=== PATIENT | female | born 2000 | race Caucasian/White ===

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

== ENCOUNTER 2018-06-24 07:57 | Day surgery (SDC) | payer OTHER ==
[2018-06-24 08:24] LABS: CONTROL LINE UCG INT CTR LINE PRESENT; URINE PREG TEST NEGATIVE (NEGATIVE)
[2018-06-24 08:47] LABS: PLATELET COUNT, AUTOMATED 222 10^3/uL (150-450)
[2018-06-24 09:08] LABS: COLLAGEN EPINEPHRINE 139 SECONDS (74-162)
[2018-06-24] MEDS: LR 1,000 ML IV ×2 (10:00→13:05)
[2018-06-24] MEDS: NS IV ×2 (11:30→12:10)
[2018-06-24] MEDS: DESMOPRESSIN ACETATE IV (11:30)
[2018-06-24] MEDS: AMINOCAPROIC ACID IV (12:10)
[2018-06-24] MEDS: BUPIVACAINE HCL 0.5% 10 ML VIAL As Ordered (12:17)
[2018-06-24] MEDS ORDERED: fentaNYL 100 MCG/2 ML INJECTION (J3010) As Ordered (12:28)
[2018-06-24] MEDS ORDERED: LIDOCAINE 2% INJ 100 MG/5 ML SDV (FOR ANES.) As Ordered (12:28)
[2018-06-24] MEDS ORDERED: PROPOFOL 200 MG/20 ML VIAL As Ordered (12:28)
[2018-06-24] MEDS ORDERED: dexameTHASONE 4 MG/ML 1ML VIAL (J1100) As Ordered ×2 (12:28)
[2018-06-24] MEDS ORDERED: ONDANSETRON 4MG/2ML VIAL (J2405) As Ordered (12:28)
[2018-06-24] MEDS ORDERED: ROCURONIUM BROMIDE 50 MG/5 ML VIAL As Ordered (12:28)
[2018-06-24] MEDS ORDERED: MIDAZOLAM INJ 2 MG/2 ML VIAL (J2250) As Ordered (12:28)
[2018-06-24] MEDS ORDERED: SUCCINYLCHOLINE 100 MG/5 ML SYRINGE (J0330) As Ordered (12:31)
[2018-06-24] MEDS ORDERED: MEPERIDINE INJ 25 MG/ML VIAL (J2175) As Ordered (13:13)
[2018-06-24] MEDS: MEPERIDINE INJ 25 MG/ML VIAL (J2175) IV ×2 (13:13→13:20)
[2018-06-24] MEDS ORDERED: fentaNYL 100 MCG/2 ML INJECTION (J3010) IV (13:15)
[2018-06-24] MEDS ORDERED: ONDANSETRON 4MG/2ML VIAL (J2405) IV (13:15)
[2018-06-24] MEDS: PERCOCET 5MG/325MG TAB PO ×2 (13:30→14:12)
[2018-06-24] MEDS: LIDOCAINE 1% MDV 20ML VIAL SQ (17:00)
[2018-06-24] MEDS ORDERED: SLF 3 ML SYR IV (18:00)
[2018-06-24] MEDS ORDERED: AMINOCAPROIC ACID IV (18:00)
[2018-06-24] MEDS ORDERED: NS IV (18:00)
[2018-06-24] MEDS: AMINOCAPROIC ACID 500 MG TAB PO (19:08)
[2018-06-24] MEDS: HYDROcodone/APAP LIQUID 7.5-325MG 15ML UDC (LORTAB ELIXIR) PO (19:09)
[2018-06-24] MEDS: SLF 3 ML SYR IV (21:08)
[2018-06-25] MEDS: AMINOCAPROIC ACID 500 MG TAB PO ×2 (01:43→07:50)
[2018-06-25] MEDS: HYDROcodone/APAP LIQUID 7.5-325MG 15ML UDC (LORTAB ELIXIR) PO ×3 (04:57→11:09)
[2018-06-25] MEDS: SLF 3 ML SYR IV (06:00)
== END 2018-06-25 11:46 | disposition home or self-care (01) ==
LOC: M SDC 06-25 11:46 → M PED 17:00
DX: J35.01 Chronic tonsillitis (principal); D68.0 Von Willebrand disease; G43.909 Migraine, unspecified, not intractable, without status migrainosus; Z88.0 Allergy status to penicillin; Z14.01 Asymptomatic hemophilia A carrier
CPT/HCPCS: 42826

== ENCOUNTER 2018-06-29 08:59 | Inpatient (IN) | payer OTHER ==
[2018-06-29] MEDS ORDERED: AMINOCAPROIC ACID 5000 MG/20 ML IV (10:15)
[2018-06-29 10:36] LABS: HEMATOCRIT 40.4 % (36.0-47.0); HEMOGLOBIN 13.5 g/dl (12.0-15.5); MEAN CORPUSCULAR HEMOGLOBIN 29.7 pg (27.0-33.0); MEAN CORPUSCULAR HGB CONC 33.4 g/dl (32.0-36.5); MEAN CORPUSCULAR VOLUME 88.8 fl (80.0-96.0); PLATELET COUNT, AUTOMATED 275 10^3/uL (150-450); RED BLOOD COUNT 4.55 10^6/uL (4.00-5.40); WHITE BLOOD COUNT 6.1 10^3/uL (4.0-10.0)
[2018-06-29] MEDS: NS 1,000 ML IV (10:45)
[2018-06-29] MEDS: DESMOPRESSIN ACETATE IV (10:47)
[2018-06-29] MEDS: NS IV ×2 (10:47→11:12)
[2018-06-29] MEDS: AMINOCAPROIC ACID IV (11:12)
[2018-06-29 11:45] LABS: INR 0.99; PARTIAL THROMBOPLASTIN TIME 32.2 SECONDS (25.4-37.6); PROTHROMBIN TIME 13.2 SECONDS (12.1-14.4)
[2018-06-29] MEDS ORDERED: GLYCOPYRROLATE INJ 0.2 MG/ML 2 ML VIAL As Ordered (12:16)
[2018-06-29] MEDS ORDERED: NEOSTIGMINE 10 MG/10 ML VIAL (J2710) As Ordered (12:16)
[2018-06-29] MEDS ORDERED: ONDANSETRON 4MG/2ML VIAL (J2405) As Ordered (12:17)
[2018-06-29] MEDS ORDERED: SUCCINYLCHOLINE 100 MG/5 ML SYRINGE (J0330) As Ordered (12:17)
[2018-06-29] MEDS ORDERED: LIDOCAINE 2% INJ 100 MG/5 ML SDV (FOR ANES.) As Ordered (12:17)
[2018-06-29] MEDS ORDERED: fentaNYL 100 MCG/2 ML INJECTION (J3010) As Ordered ×2 (12:17→12:30)
[2018-06-29] MEDS ORDERED: dexameTHASONE 4 MG/ML 1ML VIAL (J1100) As Ordered (12:17)
[2018-06-29] MEDS ORDERED: PROPOFOL 200 MG/20 ML VIAL As Ordered (12:17)
[2018-06-29] MEDS ORDERED: ROCURONIUM BROMIDE 50 MG/5 ML VIAL As Ordered (12:17)
[2018-06-29] MEDS ORDERED: MIDAZOLAM INJ 2 MG/2 ML VIAL (J2250) As Ordered (12:17)
[2018-06-29] MEDS ORDERED: ONDANSETRON 4MG/2ML VIAL (J2405) IV (13:00)
[2018-06-29] MEDS: LR 1,000 ML IV (13:00)
[2018-06-29] MEDS ORDERED: HYDROcodone/APAP LIQUID 7.5-325MG 15ML UDC (LORTAB ELIXIR) As Ordered (13:19)
[2018-06-29] MEDS: fentaNYL 100 MCG/2 ML INJECTION (J3010) IV (13:30)
[2018-06-29] MEDS: HYDROcodone/APAP LIQUID 7.5-325MG 15ML UDC (LORTAB ELIXIR) PO (13:35)
[2018-06-29] MEDS: D5W/0.45% SODIUM CHLORIDE 1,000 ML IV (16:17)
[2018-06-29] MEDS: AMINOCAPROIC ACID 500 MG TAB PO ×8 (16:18→23:13)
[2018-06-29] MEDS: MORPHINE 4 MG/ML 1ML VIAL/SYRINGE (J2270) IV (22:54)
[2018-06-30 02:18] LABS: ANION GAP 6 MEQ/L (8-16); BLOOD UREA NITROGEN 10 MG/DL (7-18); CALCIUM LEVEL 8.6 MG/DL (8.5-10.1); CARBON DIOXIDE LEVEL 25 MEQ/L (21-32); CHLORIDE LEVEL 104 MEQ/L (98-107); CREATININE FOR GFR 0.54 MG/DL (0.55-1.30); GLUCOSE, FASTING 114 MG/DL (70-100); POTASSIUM SERUM 4.4 MEQ/L (3.5-5.1); SODIUM LEVEL 135 MEQ/L (136-145); TROPONIN I < 0.02 NG/ML (< 0.10)
[2018-06-30 02:23] LABS: THYROID STIMULATING HORMONE 0.332 uIU/ML (0.463-3.98)
[2018-06-30] MEDS: D5W/0.45% SODIUM CHLORIDE 1,000 ML IV ×2 (02:36→16:59)
[2018-06-30] MEDS ORDERED: ISOVUE-370 76% 100ML VIAL (Q9967) As Ordered (06:45)
[2018-06-30] MEDS: LIDOCAINE VISCOUS 2% SOLN 15ML UDC MT (07:57)
[2018-06-30 09:19] LABS: BASO % 0.1 % (0.0-1.0); EOS % 0.3 % (0.0-3.0); HEMATOCRIT 31.8 % (36.0-47.0); IMMATURE GRANULOCYTE % 0.5 % (0-3.0); LYMPH # 2.9 10^3/uL (1.5-6.5); LYMPH % 26.4 % (24.0-44.0); MEAN CORPUSCULAR HEMOGLOBIN 29.8 pg (27.0-33.0); MEAN CORPUSCULAR VOLUME 87.6 fl (80.0-96.0); MONO # 0.9 10^3/uL (0.0-0.8); MONO % 7.9 % (0.0-5.0); NEUTROPHILS % 64.8 % (36.0-66.0); PLATELET COUNT, AUTOMATED 224 10^3/uL (150-450); RED BLOOD COUNT 3.63 10^6/uL (4.00-5.40); RED CELL DISTRIBUTION WIDTH 12.7 % (11.5-14.5); WHITE BLOOD COUNT 10.8 10^3/uL (4.0-10.0)
[2018-06-30 09:29] LABS: HEMOGLOBIN 10.8 g/dl (12.0-15.5)
[2018-06-30 09:49] LABS: ALBUMIN 2.8 GM/DL (3.2-5.2); ALBUMIN/GLOBULIN RATIO 0.93 (1.00-1.93); ALKALINE PHOSPHATASE 62 U/L (45-117); ALT/SGPT 16 U/L (12-78); ANION GAP 5 MEQ/L (8-16); AST/SGOT 10 U/L (7-37); BILIRUBIN,TOTAL 0.4 MG/DL (0.2-1.0); BLOOD UREA NITROGEN 10 MG/DL (7-18); CALCIUM LEVEL 8.2 MG/DL (8.5-10.1); CARBON DIOXIDE LEVEL 25 MEQ/L (21-32); CHLORIDE LEVEL 104 MEQ/L (98-107); CREATININE FOR GFR 0.49 MG/DL (0.55-1.30); GLUCOSE, FASTING 87 MG/DL (70-100); MAGNESIUM LEVEL 1.7 MG/DL (1.4-2.0); POTASSIUM SERUM 3.7 MEQ/L (3.5-5.1); SODIUM LEVEL 134 MEQ/L (136-145); TOTAL PROTEIN 5.8 GM/DL (6.4-8.2); TROPONIN I < 0.02 NG/ML (< 0.10)
[2018-06-30 09:53] LABS: FREE T4 0.96 NG/DL (0.78-1.33)
[2018-06-30] MEDS ORDERED: SENOKOT S TAB PO (11:15)
[2018-06-30] MEDS: HYDROcodone/APAP LIQUID 7.5-325MG 15ML UDC (LORTAB ELIXIR) PO ×2 (11:56→20:58)
[2018-06-30] MEDS: SENOKOT S TAB PO ×2 (11:57→20:57)
[2018-06-30 12:22] LABS: HEMATOCRIT 30.8 % (36.0-47.0); HEMOGLOBIN 10.5 g/dl (12.0-15.5)
[2018-06-30] MEDS: MAG SULF 1GM/100ML (MAG RUN) 1 GM in APPROPRIATE DILUENT 1 EA IV (13:06)
[2018-06-30 18:03] LABS: HEMATOCRIT 34.9 % (36.0-47.0); HEMOGLOBIN 11.7 g/dl (12.0-15.5)
[2018-07-01 00:38] LABS: HEMATOCRIT 33.1 % (36.0-47.0); HEMOGLOBIN 11.1 g/dl (12.0-15.5)
[2018-07-01] MEDS: D5W/0.45% SODIUM CHLORIDE 1,000 ML IV (06:07)
[2018-07-01] MEDS: HYDROcodone/APAP LIQUID 7.5-325MG 15ML UDC (LORTAB ELIXIR) PO ×2 (06:07→13:30)
[2018-07-01] MEDS: SENOKOT S TAB PO (08:29)
[2018-07-01 08:43] LABS: HEMATOCRIT 34.1 % (36.0-47.0); HEMOGLOBIN 11.5 g/dl (12.0-15.5); MEAN CORPUSCULAR HEMOGLOBIN 30.3 pg (27.0-33.0); MEAN CORPUSCULAR HGB CONC 33.7 g/dl (32.0-36.5); MEAN CORPUSCULAR VOLUME 89.7 fl (80.0-96.0); PLATELET COUNT, AUTOMATED 241 10^3/uL (150-450); RED CELL DISTRIBUTION WIDTH 13.1 % (11.5-14.5); WHITE BLOOD COUNT 6.6 10^3/uL (4.0-10.0)
== END 2018-07-01 13:47 | disposition home or self-care (01) | DRG 908 ==
LOC: M SDC 06-30 16:25 → M MSPAV 06-30 16:26 → M ED 08:59 → M SDC 11:10 → M MSPAV 14:10
PROC: 0W338ZZ Control Bleeding in Oral Cavity and Throat, Via Natural or Artificial Opening Endoscopic (ICD-10-PCS; principal; 2018-06-29 11:29)
DX: K91.840 Postprocedural hemorrhage of a digestive system organ or structure following a digestive system procedure (principal); E87.1 Hypo-osmolality and hyponatremia; D68.0 Von Willebrand disease; R07.81 Pleurodynia; K59.00 Constipation, unspecified; D64.9 Anemia, unspecified; R00.2 Palpitations; E07.89 Other specified disorders of thyroid; T45.625A Adverse effect of hemostatic drug, initial encounter; R51 Headache; Z14.01 Asymptomatic hemophilia A carrier

== ENCOUNTER → 2018-10-16 | Outpatient (REF) | payer OTHER ==
[~2018-10-16] MED LIST: HYDR1SOL PO; HYDROCODONE-ACETAMN; IBUP80TA PO; MAPA160S5 PO; [UNRECOGNIZED DRUG - CODE]; [UNRECOGNIZED DRUG - CODE] PO
[2018-10-16 21:04] LABS: CHLAMYDIA DNA AMPLIFICATION NEGATIVE (NEGATIVE); GC DNA AMPLIFICATION NEGATIVE (NEGATIVE)
== END ==
LOC: M LAB REF 16:13
PROVIDERS: ATTEND Physician Assistant
DX: R30.0 Dysuria (principal)

== ENCOUNTER 2021-03-13 21:28 | Emergency (ER) | payer OTHER ==
[~2021-03-13] VITALS: Ht 170.2 cm; Wt 78.4 kg
[2021-03-13 22:16] LABS: AMORPHOUS SEDIMENT MODERATE (NEGATIVE); APPEARANCE, URINE CLOUDY (CLEAR); BACTERIA, URINE AUTO NEGATIVE (NEGATIVE); BILIRUBIN, URINE AUTO NEGATIVE (NEGATIVE); BLOOD, URINE BLOOD 3+ (NEGATIVE); COLOR, URINE YELLOW (YELLOW); GLUCOSE, URINE (UA) AUTO NEGATIVE (NEGATIVE); KETONE, URINE AUTO NEGATIVE (NEGATIVE); LEUKOCYTE ESTERASE, URINE AUTO 1+ (NEGATIVE); NITRITE, URINE AUTO NEGATIVE (NEGATIVE); PROTEIN, URINE AUTO NEGATIVE (NEGATIVE); RBC, URINE AUTO 2 /HPF (0-3); SPECIFIC GRAVITY URINE AUTO 1.012 (1.002-1.035); SQUAMOUS EPITHELIAL CELL UR AU 1 /HPF (0-6); UROBILINOGEN, URINE AUTO 0.2 mg/dL (0.0-2.0); WBC, URINE AUTO 2 /HPF (0-3)
[2021-03-13 22:19] LABS: BASO # 0.1 10^3/uL (0.0-0.2); BASO % 0.5 % (0.0-1.0); EOS # 0.1 10^3/uL (0.0-0.5); EOS % 0.9 % (0.0-3.0); HEMATOCRIT 40.3 % (36.0-47.0); HEMOGLOBIN 13.3 g/dl (12.0-15.5); LYMPH # 3.7 10^3/uL (1.5-5.0); LYMPH % 31.3 % (24.0-44.0); MEAN CORPUSCULAR VOLUME 93.9 fl (80.0-96.0); MONO # 1.1 10^3/uL (0.0-0.8); NEUTROPHILS # 6.8 10^3/uL (1.5-8.5); NEUTROPHILS % 57.5 % (36.0-66.0); PLATELET COUNT, AUTOMATED 259 10^3/uL (150-450); RED BLOOD COUNT 4.29 10^6/uL (4.00-5.40); WHITE BLOOD COUNT 11.8 10^3/uL (4.0-10.0)
[2021-03-13 23:35] LABS: BLOOD UREA NITROGEN 7 MG/DL (7-18); CALCIUM LEVEL 8.8 MG/DL (8.5-10.1); CARBON DIOXIDE LEVEL 25 MEQ/L (21-32); CHLORIDE LEVEL 110 MEQ/L (98-107); CREATININE FOR GFR 0.56 MG/DL (0.55-1.30); GLOMERULAR FILTRATION RATE > 60.0 (>60); GLUCOSE, FASTING 93 MG/DL (70-100); HCG, SERUM QUANTITATIVE 31417 MIU/ML; POTASSIUM SERUM 4.3 MEQ/L (3.5-5.1); SODIUM LEVEL 140 MEQ/L (136-145)
[2021-03-13] MEDS ORDERED: ACETAMINOPHEN 500 MG TAB PO ONE (23:45)
--- NOTE | 2021-03-14 01:25 | REPVR ---
PROCEDURE INFORMATION: Exam: US Duplex Artery and Vein of the Abdominal and/or Reproductive Organs. Complete Ovaries Exam date and time: 03/13/2021 11:54 PM Age: 20 years old Clinical indication: Lmp or gestational age (in weeks): 6 weeks 3 days; Other: Vag spotting, cramping; complicated by abdominal or pelvic pain; Other: Left pelvic; ; Additional info: Vag bleeding, pelvic cramping, 6wks TECHNIQUE: Imaging protocol: Real-time duplex ultrasound scan of the arterial and venous flow with color Doppler flow and spectral waveform analysis with image documentation. Complete duplex exam focused on the ovaries. Duplex exam was added to evaluate for torsion and other vascular conditions. COMPARISON: No relevant prior studies available. FINDINGS: Right adnexa: The arterial and venous color Doppler flow and spectral waveforms within the right ovary are within normal limits, without evidence for right ovarian torsion. Left adnexa: The arterial and venous color Doppler flow and spectral waveforms within the left ovary are within normal limits, without evidence for left ovarian torsion. IMPRESSION: No evidence for ovarian torsion. PROCEDURE INFORMATION: Exam: US First Trimester, Transabdominal and US , Transvaginal Exam date and time: 03/13/2021 11:54 PM Age: 20 years old Clinical indication: Lmp or gestational age (in weeks): 6 weeks 3 days; Other: Vag spotting, cramping; complicated by abdominal or pelvic pain; Other: Left pelvic; ; Additional info: Vag bleeding, pelvic cramping, 6wks TECHNIQUE: Imaging protocol: Real-time transabdominal obstetrical ultrasound of the maternal pelvis and a first trimester , less than 14 weeks 0 days, with image documentation. Transvaginal imaging was used for better evaluation of the fetus, adnexa, and/or cervix. COMPARISON: No relevant prior studies available. FINDINGS: Last menstrual period: 01/28/2021 Gestation: There is a single live intrauterine gestation with a 3 mm in diameter yolk sac. Embryonic/ heart rate: 104 bpm Placenta: There is a 10 mm x 6 mm x 8 mm small subchorionic hemorrhage surrounding less than 20% of the circumference of the gestational sac. Amniotic fluid: Amniotic fluid is normal for gestational age. BIOMETRY: Gestational age (AUA): 6 weeks 1 day Gestational age (LMP): 6 weeks 3 days Estimated due date (AUA): 11/06/2021 Estimated due date (LMP): 11/04/2021 [place] length: 3.8 mm MATERNAL: Uterus: The uterus is retroverted and measures 8.3 cm x 4.6 cm x 5.7 cm. No myometrial mass is noted. Cervix: There are nabothian cysts in the cervix measuring up to 5 mm. Right adnexa: The right ovary is normal in appearance. No right ovarian cyst or right adnexal mass is noted. The right ovary measures 3.5 cm x 1.8 cm x 1.8 cm. Left adnexa: There is a 2.6 cm x 2.3 cm x 2.3 cm corpus luteal cyst in the left ovary. The left ovary measures 4.7 cm x 2.5 cm x 3 cm. Intraperitoneal space: There is a small amount of free fluid in the pelvis. IMPRESSION: 1. Single live intrauterine with a gestational age by today's ultrasound of 6 weeks 1 day and estimated due date on 11/06/2021. A second trimester obstetrical ultrasound is suggested at 19-20 weeks gestation for a detailed anatomical survey. 2. 10 mm x 6 mm x 8 mm small subchorionic hemorrhage surrounding less than 20% of the circumference of the gestational sac. 3. 2.6 cm x 2.3 cm x 2.3 cm corpus luteal cyst in the left ovary and a small amount of free fluid in the pelvis. Electronically signed by: Placido Jones On 03/14/2021 01:25:11 AM
[2021-03-14 01:38] VITALS: BP 120/70
== END 2021-03-14 01:51 | disposition home or self-care (01) ==
LOC: M ED 21:28
DX: O20.8 Other hemorrhage in early pregnancy (principal); O99.891 Other specified diseases and conditions complicating pregnancy; N83.12 Corpus luteum cyst of left ovary; Z3A.01 Less than 8 weeks gestation of pregnancy; Z88.0 Allergy status to penicillin

== ENCOUNTER → 2023-04-21 | Outpatient (REF) | payer OTHER | LOC: M LAB REF 18:25 | PROVIDERS: ATTEND Internal Medicine | DX: J02.9 Acute pharyngitis, unspecified (principal) ==

== ENCOUNTER 2024-11-04 14:15 | Emergency (ER) | payer BC ==
[~2024-11-04] VITALS: Ht 170.2 cm; Wt 78.2 kg
[~2024-11-04 14:15] MED LIST changes: +FLUO-290; +[UNRECOGNIZED DRUG - CODE] NS
[2024-11-04 14:19] VITALS: TEMP 98.2
[2024-11-04 15:54] LABS: BASO % 0.3 % (0.0-1.0); EOS # 0.1 10^3/uL (0.0-0.5); EOS % 0.4 % (0.0-3.0); HEMATOCRIT 41.2 % (36.0-47.0); HEMOGLOBIN 13.9 g/dl (12.0-15.5); LYMPH # 2.7 10^3/uL (1.5-5.0); LYMPH % 23.6 % (24.0-44.0); MEAN CORPUSCULAR HEMOGLOBIN 30.5 pg (27.0-33.0); MEAN CORPUSCULAR HGB CONC 33.7 g/dl (32.0-36.5); MEAN CORPUSCULAR VOLUME 90.5 fl (80.0-96.0); MONO # 0.6 10^3/uL (0.0-0.8); MONO % 5.4 % (2.0-8.0); NEUTROPHILS # 7.9 10^3/uL (1.5-8.5); NEUTROPHILS % 69.8 % (36.0-66.0); PLATELET COUNT, AUTOMATED 237 10^3/uL (150-450); RED BLOOD COUNT 4.55 10^6/uL (4.00-5.40); WHITE BLOOD COUNT 11.3 10^3/uL (4.0-10.0)
[2024-11-04 16:14] LABS: BLOOD UREA NITROGEN 10 MG/DL (9-23); CALCIUM LEVEL 9.6 MG/DL (8.5-10.1); CARBON DIOXIDE LEVEL 26 MMOL/L (20-31); CHLORIDE LEVEL 106 MMOL/L (98-107); CREATININE FOR GFR 0.58 MG/DL (0.55-1.30); GLOMERULAR FILTRATION RATE > 60.0 (>60); GLUCOSE, FASTING 105 MG/DL (60-100); SODIUM LEVEL 139 MMOL/L (136-145)
[2024-11-04 18:48] VITALS: BP 129/87; O2SAT 96
== END 2024-11-04 18:50 | disposition home or self-care (01) ==
LOC: M ED 14:15
DX: O20.8 Other hemorrhage in early pregnancy (principal); O99.119 Other diseases of the blood and blood-forming organs and certain disorders involving the immune mechanism complicating pregnancy, unspecified trimester; D68.00 Von Willebrand disease, unspecified; Z3A.01 Less than 8 weeks gestation of pregnancy; Z79.899 Other long term (current) drug therapy; Z88.0 Allergy status to penicillin

== ENCOUNTER → 2024-11-10 | Outpatient (REF) | payer BC | LOC: M WUC 19:51 → M LAB REF 19:51 | PROVIDERS: ATTEND Physician Assistant | DX: N39.0 Urinary tract infection, site not specified (principal) ==

== ENCOUNTER → 2024-11-24 | Outpatient (CLI) | payer BC | LOC: M WHC 14:47 | PROVIDERS: ATTEND Nurse Practitioner Family | DX: O35.9XX0 Maternal care for (suspected) fetal abnormality and damage, unspecified, not applicable or unspecified (principal); Z3A.10 10 weeks gestation of pregnancy ==

== ENCOUNTER → 2024-11-24 | Outpatient (CLI) | payer BC ==
[2024-11-24 15:43] LABS: HEMOGLOBIN 13.5 g/dl (12.0-15.5); MEAN CORPUSCULAR HEMOGLOBIN 31.4 pg (27.0-33.0); MEAN CORPUSCULAR HGB CONC 33.8 g/dl (32.0-36.5); PLATELET COUNT, AUTOMATED 229 10^3/uL (150-450); WHITE BLOOD COUNT 10.1 10^3/uL (4.0-10.0)
[2024-11-24 16:46] LABS: HIV 1&2 SCREEN NEGATIVE (NEGATIVE)
[2024-11-24 16:53] LABS: HEPATITIS C VIRUS ABY INDEX 0.02 INDEX (<0.8)
[2024-11-24 16:57] LABS: Trichomonas vaginalis (AMP) NOT DETECTED (NEGATIVE)
[2024-11-24 17:20] LABS: GC DNA AMPLIFICATION NEGATIVE (NEGATIVE)
== END ==
LOC: M PLALAB 12:44
PROVIDERS: ATTEND Nurse Practitioner Family
DX: Z34.81 Encounter for supervision of other normal pregnancy, first trimester (principal); Z3A.00 Weeks of gestation of pregnancy not specified

== ENCOUNTER → 2024-12-23 | Outpatient (CLI) | payer BC | LOC: M PLALAB 12:50 | PROVIDERS: ATTEND Nurse Practitioner Family | DX: Z34.81 Encounter for supervision of other normal pregnancy, first trimester (principal) ==

== ENCOUNTER → 2025-02-04 | Outpatient (CLI) | payer BC | LOC: M WHC 14:19 | PROVIDERS: ATTEND Nurse Practitioner Family | DX: Z34.82 Encounter for supervision of other normal pregnancy, second trimester (principal) ==

== ENCOUNTER 2025-05-17 11:15 | Outpatient (CLI) | payer BC ==
[~2025-05-17] VITALS: Ht 170.2 cm; Wt 83.8 kg
[2025-05-17 11:31] VITALS: BP 123/89
[2025-05-17 11:35] VITALS: O2SAT 97
[2025-05-17] MEDS ORDERED: GNP250TA9 PO (11:36)
[2025-05-17] MEDS ORDERED: PRENTAB9 PO (11:36)
[2025-05-17 13:19] VITALS: BP 116/75
[2025-05-17 14:08] LABS: APPEARANCE, URINE HAZY (CLEAR); BACTERIA, URINE AUTO 1+ (NEGATIVE); BILIRUBIN, URINE AUTO NEGATIVE (NEGATIVE); BLOOD, URINE BLOOD NEGATIVE (NEGATIVE); GLUCOSE, URINE (UA) AUTO 1+ mg/dL (NEGATIVE); KETONE, URINE AUTO NEGATIVE (NEGATIVE); LEUKOCYTE ESTERASE, URINE AUTO 1+ (NEGATIVE); MUCUS, URINE SMALL (NEGATIVE); NITRITE, URINE AUTO NEGATIVE (NEGATIVE); PROTEIN, URINE AUTO 1+ mg/dL (NEGATIVE); RBC, URINE AUTO 1 /HPF (0-3); SPECIFIC GRAVITY URINE AUTO 1.017 (1.002-1.035); SQUAMOUS EPITHELIAL CELL UR AU 9 /HPF (0-6); UROBILINOGEN, URINE AUTO 0.2 mg/dL (0.0-2.0); WBC, URINE AUTO 2 /HPF (0-3)
[2025-05-17] MEDS: BETAMETHASONE SOLUSPAN 6 MG/ML 5 ML VIAL IM SCH (15:02)
[2025-05-17 15:16] VITALS: BP 124/77
[2025-05-17] MEDS ORDERED: HOME MED LIST COMPLETE! XX SCH (16:05)
[2025-05-17 16:39] VITALS: BP 106/61
[2025-05-17 18:25] VITALS: BP 114/71
== END 2025-05-17 18:40 | disposition home or self-care (01) ==
LOC: M LDO 11:15
PROVIDERS: ATTEND Advanced Practice Midwife
DX: O47.03 False labor before 37 completed weeks of gestation, third trimester (principal); O99.113 Other diseases of the blood and blood-forming organs and certain disorders involving the immune mechanism complicating pregnancy, third trimester; O99.343 Other mental disorders complicating pregnancy, third trimester; O99.283 Endocrine, nutritional and metabolic diseases complicating pregnancy, third trimester; O09.293 Supervision of pregnancy with other poor reproductive or obstetric history, third trimester; D68.00 Von Willebrand disease, unspecified; F41.8 Other specified anxiety disorders; E28.2 Polycystic ovarian syndrome; Z88.0 Allergy status to penicillin; Z88.1 Allergy status to other antibiotic agents; Z3A.34 34 weeks gestation of pregnancy
CPT/HCPCS: 59025; 81001; 87081; 87086; 96372; G0463; J0702

== ENCOUNTER 2025-05-18 14:59 | Outpatient (CLI) | payer BC ==
[~2025-05-18] VITALS: Ht 170.2 cm; Wt 83.7 kg
[~2025-05-18 14:59] MED LIST changes: +GNP250TA9 PO; +PRENTAB9 PO
[2025-05-18 15:14] VITALS: BP 126/82
[2025-05-18] MEDS: BETAMETHASONE SOLUSPAN 6 MG/ML 5 ML VIAL IM ONE (15:28)
== END 2025-05-18 15:00 | disposition home or self-care (01) ==
LOC: M LDO 14:59
PROVIDERS: ATTEND Specialist
DX: O60.03 Preterm labor without delivery, third trimester (principal); O99.113 Other diseases of the blood and blood-forming organs and certain disorders involving the immune mechanism complicating pregnancy, third trimester; O99.343 Other mental disorders complicating pregnancy, third trimester; O99.283 Endocrine, nutritional and metabolic diseases complicating pregnancy, third trimester; O09.293 Supervision of pregnancy with other poor reproductive or obstetric history, third trimester; D68.00 Von Willebrand disease, unspecified; F41.8 Other specified anxiety disorders; E28.2 Polycystic ovarian syndrome; Z3A.35 35 weeks gestation of pregnancy
CPT/HCPCS: 59025; 96372; G0463; J0702

== ENCOUNTER 2025-05-25 16:30 | Outpatient (CLI) | payer BC ==
[~2025-05-25] VITALS: Ht 170.2 cm; Wt 83.6 kg
[2025-05-25] MEDS ORDERED: FLUO40CA PO (16:48)
[2025-05-25 16:50] VITALS: BP 114/66
[2025-05-25] MEDS ORDERED: HOME MED LIST COMPLETE! XX SCH (16:50)
[2025-05-25 18:29] VITALS: BP 113/73
[2025-05-25 20:53] VITALS: BP 139/76
== END 2025-05-25 20:56 | disposition home or self-care (01) ==
LOC: M LDO 16:30
PROVIDERS: ATTEND Obstetrics & Gynecology
DX: O09.293 Supervision of pregnancy with other poor reproductive or obstetric history, third trimester (principal); O99.113 Other diseases of the blood and blood-forming organs and certain disorders involving the immune mechanism complicating pregnancy, third trimester; O99.343 Other mental disorders complicating pregnancy, third trimester; O26.893 Other specified pregnancy related conditions, third trimester; O99.283 Endocrine, nutritional and metabolic diseases complicating pregnancy, third trimester; D68.00 Von Willebrand disease, unspecified; R25.2 Cramp and spasm; F41.9 Anxiety disorder, unspecified; F32.A Depression, unspecified; E28.2 Polycystic ovarian syndrome; Z88.0 Allergy status to penicillin; Z88.1 Allergy status to other antibiotic agents; Z79.899 Other long term (current) drug therapy; Z3A.36 36 weeks gestation of pregnancy
CPT/HCPCS: 59025; G0463

== ENCOUNTER 2025-06-13 19:58 | Outpatient (CLI) | payer BC ==
[~2025-06-13] VITALS: Ht 170.2 cm; Wt 85.3 kg
[~2025-06-13 19:58] MED LIST changes: +FLUO40CA PO
[2025-06-13 20:23] VITALS: BP 130/76; O2SAT 98
== END 2025-06-13 20:37 | disposition home or self-care (01) ==
LOC: M LDO 19:58
PROVIDERS: ATTEND Obstetrics & Gynecology
DX: O36.8130 Decreased fetal movements, third trimester, not applicable or unspecified (principal); O99.113 Other diseases of the blood and blood-forming organs and certain disorders involving the immune mechanism complicating pregnancy, third trimester; O99.283 Endocrine, nutritional and metabolic diseases complicating pregnancy, third trimester; D68.00 Von Willebrand disease, unspecified; E28.2 Polycystic ovarian syndrome; Z3A.38 38 weeks gestation of pregnancy
CPT/HCPCS: 59025; G0463